=== PATIENT | female | born 1955 | race Caucasian/White ===

== ENCOUNTER 2021-03-23 07:12 | Day surgery (SDC) | payer OTHER, SELFPAY ==
[2021-03-17 16:44] VITALS: BMI 21.7
--- NOTE | 2021-03-18 14:45 | MHC.SHP ---
Pre-Procedural Eval Section A The patient is an INPATIENT: No The History & Physical has been completed within 30 days and I have reviewed it.: Yes Section B Chief Complaint: cataract Allergies: Allergies Allergy/AdvReac Type Severity Reaction Status Date / Time codeine [CODEINE] Allergy Severe HALLUCINATI Verified 03/17/21 16:47 ONS/AGITATI ON adhesive tape [ADHESIVE TAPE] Allergy Mild BLISTER Verified 03/17/21 16:47 (YRS AGO) Plan Diagnosis/Plan: Unchanged I have reviewed the history and physical and performed a pertinent physical examination on my patient. No changes have occurred unless specified.
--- NOTE | 2021-03-20 09:15 | P.CONAN_ITS ---
Documented by User: Gricel Davila 03/20/21 09:16 HPI - Anesthesia Eval Consult details Narrative: 66yo F for Right Cataract Extraction IOL Insertion PCP cleared No prev cataract on record [facility] Past Medical History Medical History COVID-19 vaccine series completed Elevated cholesterol GERD (gastroesophageal reflux disease) HTN (hypertension) Surgical History Surgical History History of History of cataract extraction Hx of colonoscopy Social History Social History Patient Tobacco Use Status: Never used Tobacco Are you DNR?: No Advance Directives: No Advance Directives Information Provided: No Advance Directives on File: No Meds Allergies Allergy/AdvReac Type Severity Reaction Status Date / Time codeine [CODEINE] Allergy Severe HALLUCINATI Verified 03/23/21 08:00 ONS/AGITATI ON adhesive tape [ADHESIVE TAPE] Allergy Mild BLISTER Verified 03/23/21 08:00 (YRS AGO) Home Medications Medication Instructions Recorded Confirmed Last Taken Type losartan 1 tab PO DAILY 03/17/21 03/17/21 Unknown History omeprazole 1 cap PO DAILY 03/17/21 03/17/21 03/23/21 05:45 History simvastatin 1 tab PO BEDTIME 03/17/21 03/17/21 Unknown History Exam Exam Date and Time: March 20, 2021 0915 Height,Weight and Vital Signs: Height 5 ft 6 in Weight 61.235 kg Assessment and Plan Assessment Anesthesia Assessment: Chart Reviewed Documented by User: Edi Vasquez 03/23/21 08:17 [facility] Past Medical History Medical History COVID-19 vaccine series completed Elevated cholesterol GERD (gastroesophageal reflux disease) HTN (hypertension) Surgical History Surgical History History of History of cataract extraction Hx of colonoscopy Social History Social History Patient Tobacco Use Status: Never used Tobacco Are you DNR?: No Advance Directives: No Advance Directives Information Provided: No Advance Directives on File: No Meds Allergies Allergy/AdvReac Type Severity Reaction Status Date / Time codeine [CODEINE] Allergy Severe HALLUCINATI Verified 03/23/21 08:00 ONS/AGITATI ON adhesive tape [ADHESIVE TAPE] Allergy Mild BLISTER Verified 03/23/21 08:00 (YRS AGO) Home Medications Medication Instructions Recorded Confirmed Last Taken Type losartan 1 tab PO DAILY 03/17/21 03/17/21 Unknown History omeprazole 1 cap PO DAILY 03/17/21 03/17/21 03/23/21 05:45 History simvastatin 1 tab PO BEDTIME 03/17/21 03/17/21 Unknown History Exam Airway Mallampati Class: II TM Dist: >3cm Loose/Missing/Broken Teeth: No (many crowns) Heart: rrr+[id number] Lungs: cta b/l Assessment and Plan Assessment Anesthesia Assessment: Anesthesia Plan Discussed, PAT Visit and Chart Reviewed Final Anesthetic Review NPO: Yes ASA Class: II Final Preanesthetic Review: No Changes in Pt Med Stat, Meds/Allgs Chart Reviewed, Consent Obtained/Reviewed and Anes Risks/Benef Reviewed Patient Risk: Low Procedure Risk: Low Assessment/Block/Sedation in SS: Assess/Block/Sedation-SS Anesthetic Plan Anesthetic Plan: MAC: and Agree w/ Assess. and Plan Disposition: Standard PACU
[2021-03-23 08:00] VITALS: BP 123/58; PULSE 71; RESP 16; TEMP 37.2; O2SAT 100
[2021-03-23] MEDS: Tetracaine HCl/PF 0.5% Oph Sol 4 ML DROPS 1 DROP EYE-RIGHT (08:14)
[2021-03-23] MEDS: Lactated Ringers 500 ML 50 ML IV (08:16)
[2021-03-23] MEDS: Tropicamide 1 % Ophth Sol 3 ML BTL 1 DROP EYE-RIGHT ×3 (08:17→08:26)
[2021-03-23] MEDS: Phenylephrine HCL 2.5% Oph SoL 2 ML BOTTLE 1 DROP EYE-RIGHT ×3 (08:19→08:28)
--- NOTE | 2021-03-23 09:02 | HO.PNOPHT ---
Ophthalmology Procedure Procedure Date of Service: 03/23/21 Ophthalmology Viscoelastic: Healon Duet Dual Pack Pro Ophthalmology Lenses: TECNIS [id number] (17.5) Procedure Notes: PREOPERATIVE DIAGNOSIS: Decreased visual acuity right eye secondary to cataract POSTOPERATIVE DIAGNOSIS: Same PROCEDURE: Right cataract extraction with a toric multifocal intraocular lens insertion axis 92 SURGEON: Logan Castillo M.D. ANESTHESIA: Topical/MAC ESTIMATED BLOOD LOSS: None COMPLICATIONS: None After obtaining informed consent, the patient was brought to the operating room suite and placed in the supine position. After adequate sedation per anesthesia, topical drops of Tetracaine were given to the right eye. The eye was then prepped and draped in the usual sterile fashion. The operating room microscope was then positioned over the operative eye and a lid speculum placed. A paracentesis was created. Viscoelastic was then instilled into the anterior chamber. A three plane incision was then created temporally, utilizing a 2.85 mm keratome. Capsulotomy forceps were then utilized to create a circular tear capsulotomy. Hydrodissection and hydrodelineation were carried out until adequate mobilization of the nucleus occurred. Phacoemulsification was then utilized to remove the dense central nucleus followed by removal of the cortical material utilizing the automated aspiration irrigation unit. Viscoelastic was instilled into the posterior capsular bag followed by placement of a multifocal posterior chamber intraocular lens without difficulty. The residual Viscoelastic was then removed utilizing the automated IA machine. The wound was checked and found to be watertight. The patient tolerated the procedure well and the lid speculum was removed. Intracameral injection of Vigamox 0.1 mL followed by a subtenon injection of Kenalog-40 0.2 mL were administered. The patient will be seen in the a.m.
[2021-03-23 09:25] VITALS: BP 122/59; PULSE 67; RESP 19; TEMP 36.2; O2SAT 99
== END 2021-03-23 10:21 | disposition home or self-care (01) ==
PROVIDERS: Visit Provider Ophthalmology
PROC: (CPT 66985; principal; 2021-03-23 09:40)
DX: H25.11 Age-related nuclear cataract, right eye (principal); Z88.5 Allergy status to narcotic agent
CPT/HCPCS: 66984; J2250; J3010; J3300; V2788

== ENCOUNTER 2022-08-09 10:44 | Outpatient (REF) | payer MEDICARE, SELFPAY ==
[2022-08-09 14:04] LABS: Hematocrit 39.2 % (37.0-47.0); Hemoglobin 12.6 g/dl (12.0-16.0); Mean Corpuscular HGB Conc 32.1 g/dl (31.0-35.0); Mean Corpuscular Hemoglobin 28.9 pg (27.0-33.0); Mean Corpuscular Volume 89.9 fL (80.0-98.0); Mean Platelet Volume 12.3 fL (9.4-12.3); Platelet Count 179 X10*3/uL (160-400); Red Blood Count 4.36 X10*6/uL (4.20-5.50); Red Cell Distribution Width 14.2 % (11.0-16.0); White Blood Count 4.3 X10*3/uL (4.8-10.8)
[2022-08-09 14:19] LABS: Appearance Urine Hazy; Color Urine Yellow; Glucose Urine UA Negative (Negative); Leukocyte Esterase Urine Large (3+) (Negative); Nitrite Urine Negative (Negative); PH 7.5 (5.0-9.0); Specific Gravity - Urine 1.015 (1.005-1.025); UMIC TRIGGER UA YES; Urine Blood Negative (Negative); Urine Ketones Negative (Negative); Urine Protein Negative (Neg-Trace)
[2022-08-09 14:40] LABS: Alanine Aminotransferase 12 U/L (0-31); Albumin Level 4.1 g/dL (3.5-5.0); Alkaline Phosphatase 63 U/L (39-117); Anion Gap 14 (12-20); Aspartate Amino Transferase 18 U/L (5-31); Bilirubin Total 0.4 mg/dL (0.0-1.0); Blood Urea Nitrogen 9 mg/dL (9-16); Calcium 9.2 mg/dL (8.4-10.2); Carbon Dioxide 27 mmol/L (22-29); Chloride 105 mmol/L (96-108); Cholesterol 193 mg/dL; Estimated Glomerular Filt Rate > 60; Glucose Fasting 92 mg/dL (60-99); HDL Cholesterol 88 mg/dL; LDL Cholesterol Calculated 93 mg/dl; Potassium 4.7 mmol/L (3.3-5.1); Sodium 141 mmol/L (135-145); Total Protein 6.7 g/dL (6.5-8.0); Triglycerides 60 mg/dL
[2022-08-09 14:43] LABS: TSH reflex Free T4 2.09 uIU/mL (0.32-4.0); Vitamin D 25-OH Total 47.6 ng/mL (>30)
[2022-08-09 14:44] LABS: RBC Urine 0-2 /HPF (0-2); Renal Epithelial Cells Urine Present; WBC Urine 0-5 /HPF (0-5)
[2022-08-09 14:45] LABS: Bacteria Urine 3+ (None Seen); Hyaline Casts Urine 0-2 /LPF (0-2)
[2022-08-09 14:58] LABS: Creatinine Urine 109.27 mg/dL; Microalbum/Creatinine Ratio Ur 22.8 ug/mg cr
== END 2022-08-09 10:45 | disposition home or self-care (01) ==
LOC: HO.HMGCLDS 10:44
PROVIDERS: PCP Internal Medicine; Visit Provider Internal Medicine
DX: K21.9 Gastro-esophageal reflux disease without esophagitis (principal); M81.0 Age-related osteoporosis without current pathological fracture; R80.9 Proteinuria, unspecified; E78.00 Pure hypercholesterolemia, unspecified
CPT/HCPCS: 36415; 80053; 80061; 81001; 82043; 82306; 84443; 85027

== ENCOUNTER 2022-08-17 09:25 | Outpatient (REF) | payer MEDICARE, SELFPAY ==
[2022-08-17 12:15] LABS: Appearance Urine Clear; Color Urine Yellow; Glucose Urine UA Negative (Negative); Leukocyte Esterase Urine Trace (Negative); Nitrite Urine Negative (Negative); UMIC TRIGGER UA YES; Urine Blood Negative (Negative); Urine Ketones Negative (Negative); Urine Protein Negative (Neg-Trace)
[2022-08-17 12:26] LABS: Bacteria Urine None Seen (None Seen); RBC Urine 0-2 /HPF (0-2); Squamous Epithelial Cell Urine 0-2 /HPF (0-2); WBC Urine 0-5 /HPF (0-5)
== END 2022-08-17 09:26 | disposition home or self-care (01) ==
LOC: HO.HMGCLDS 09:25
PROVIDERS: PCP Internal Medicine; Visit Provider Internal Medicine
DX: R82.71 Bacteriuria (principal)
CPT/HCPCS: 81001; 87086; 87147

== ENCOUNTER 2023-10-31 12:48 | Outpatient (AMB) | payer MEDICARE, SELFPAY ==
--- NOTE | 2023-10-31 12:58 | A.OFFPC_ITS ---
Vital Signs 10/31/23 12:59 Height 5 ft 5.5 in Weight 147 lb BMI 24.1 BP 106/74 Blood Pressure Location Lt brachial Position Sitting Pulse 79 Pulse Source Pulse Oximeter Pulse Oximetry (%) 97 Oxygen Delivery Method Room Air Intake Visit Reasons: Annual PE, Discuss/Bill ACP Intake Note: Pt is here today for PE. Allergies codeine [CODEINE] Allergy (Severe, Verified 10/31/23 12:58) HALLUCINATIONS/AGITATION adhesive tape [ADHESIVE TAPE] Allergy (Mild, Verified 10/31/23 12:58) BLISTER (YRS AGO) Medication List - Last Reconciled 10/31/23 by Pili Petit MD losartan 25 mg PO DAILY omeprazole 20 mg PO DAILY raloxifene 60 mg PO DAILY simvastatin 40 mg PO BEDTIME Tobacco use date assessed: 10/31/23 Fall risk assessment: No Falls in past year Last assessed Fall Risk: 10/31/23 Dental Screening Dental Screen Date: 10/31/23 Did you have a dental visit in the last 12 months?: Yes Did you have a dental problem in the last 6 months where you did not have access to dental care?: No Was dental information given to patient?: Patient has dentist HPI Annual PE, Discuss/Bill ACP HPI Details Pt presents for PE. [facility] Medical History COVID-19 vaccine series completed GERD (gastroesophageal reflux disease) Elevated cholesterol Surgical History Hx of colonoscopy History of History of cataract extraction Social History Household Members Other:: , 2 adult children, in [facility] and [place], Housing: House Patient Tobacco Use Status: Never used Tobacco e-Cigarette/Vaping Use: Never Used Current occupational status: retired Cognitive needs: No Hearing needs: No Vision needs: No Questionnaire Thrive Questionnaire Date Thrive assessed: 08/19/22 AUDIT C Alcohol Use Questionnaire (AUDIT-C) 1. How often do you have a drink containing alcohol?: 2-3 times a week 2. How many drinks containing alcohol do you have on a typical day when you are drinking?: 1 or 2 3. How often do you have six or more drinks on one occasion?: Never Total Score: 3 NILDA-7 AMB Questionnaire NILDA-7 Date NILDA - 7 assessed: 08/19/22 Feeling nervous, anxious, or on edge: 1 = Several days Not being able to stop or control worryin = Several days Worrying too much about different things: 1 = Several days Trouble relaxin = Several days Being so restless that it is hard to sit still: 0 = Not at all Becoming easily annoyed or irritable: 0 = Not at all Feeling afraid as if something awful might happen: 0 = Not at all Total NILDA-7 score (0-4 normal; 5-9 mild; 10-14 moderate; 15-21 severe): 4 Source: Developed by Drs. Damien Barr, Sarah Johnson, Justen Barrera and colleagues, with an educational [email or web address] from [employer]. Review of Systems Const All systems reviewed & are unremarkable except as noted in HPI and below Reports no additional complaints Eyes Reports no additional complaints ENT Reports no additional complaints Card Reports no additional complaints Resp Reports no additional complaints GI Reports no additional complaints Reports no additional complaints Musc Reports no additional complaints Physical exam (Primary Care) Vital Signs: Last Vital Signs Pulse 79 10/31/23 12:59 BP 106/74 10/31/23 12:59 Pulse Ox 97 10/31/23 12:59 Oxygen Delivery Method Room Air 10/31/23 12:59 BMI result Body Mass Index 24.1 Tobacco/Smoking Status: Tobacco use Status Tobacco use date assessed 10/31/23 10/31/23 13:09 Patient Tobacco Use Status Never used Tobacco 10/31/23 13:09 e-Cigarette/Vaping Use Never Used 10/31/23 12:58 Thrive Assessment: Date of Thrive Assessment Date Thrive assessed 08/19/22 10/31/23 12:58 Const General: no acute distress HENMT Head: Yes normal to inspection Ears: hearing grossly normal bilaterally General nose exam: Normal external nose present Face and sinus: Yes normal facial exam Throat: Yes posterior oropharynx normal Eyes General: appearance normal, both eyes and all related structures Neck Neck: Yes no lymphadenopathy and Yes supple Resp Effort & Inspection: normal respiratory effort Auscultation: clear to auscultation bilaterally Cardio Rhythm: regular rhythm Heart sounds: S1 normal heart sound present and S2 normal heart sound present GI Inspection: Yes normal to inspection Palpation (GI): Soft to palpation Percussion: Yes normal to percussion Auscultation: normal bowel sounds Assessment and Plan Assessment & Plan (1) Elevated cholesterol: Code(s): E78.00 - Pure hypercholesterolemia, unspecified Plan: Continue statin (2) Proteinuria: Comment: on ARB Code(s): R80.9 - Proteinuria, unspecified Plan: Continue ARB, check UA, (3) Annual physical exam: Code(s): Z00.00 - Encounter for general adult medical examination without abnormal findings Plan: Well-balanced diet regular physical activity discussed with the patient. Orders: Orders Vitamin D 25-OH Total Today E78.00 - Pure hypercholesterolemia, unspecified, R80.9 - Proteinuria, unspecified, Z00.00 - Encounter for general adult medical examination without abnormal findings UA w Microscopic Today E78.00 - Pure hypercholesterolemia, unspecified, R80.9 - Proteinuria, unspecified, Z00.00 - Encounter for general adult medical examination without abnormal findings Total Protein Urine Random Today R80.9 - Proteinuria, unspecified Comprehensive [place]. Panel Fast Today E78.00 - Pure hypercholesterolemia, unspecified, R80.9 - Proteinuria, unspecified, Z00.00 - Encounter for general adult medical examination without abnormal findings Complete Blood Count Auto Diff Today E78.00 - Pure hypercholesterolemia, unspecified, R80.9 - Proteinuria, unspecified, Z00.00 - Encounter for general adult medical examination without abnormal findings Lipid Panel Today E78.00 - Pure hypercholesterolemia, unspecified, R80.9 - Proteinuria, unspecified, Z00.00 - Encounter for general adult medical examination without abnormal findings Medications: Refilled omeprazole 20 mg PO DAILY 90 caps 3RF simvastatin 40 mg PO BEDTIME 90 tabs 3RF losartan 25 mg PO DAILY 90 tabs 3RF Coding Level of Care Code Est Pt Prev Care >65y(44815) Diagnoses Elevated cholesterol E78.00 Proteinuria R80.9 Annual physical exam Z00.00
[2023-10-31 12:59] VITALS: BP 106/74; PULSE 79; O2SAT 97; BMI 24.1
== END 2023-10-31 13:49 | disposition home or self-care (01) ==
PROVIDERS: PCP Internal Medicine; Visit Provider Internal Medicine
DX: E78.00 Pure hypercholesterolemia, unspecified (principal); R80.9 Proteinuria, unspecified; Z00.00 Encounter for general adult medical examination without abnormal findings
CPT/HCPCS: 99397

== ENCOUNTER 2023-10-31 13:51 | Outpatient (REF) | payer MEDICARE, SELFPAY ==
[2023-10-31 16:12] LABS: MANUAL DIFF FLAG NO
[2023-10-31 16:22] LABS: Basophils Percent Auto 0.3 % (0-2); Eosinophils Absolute Auto 0.1 X10*3/uL (0.0-0.4); Eosinophils Percent Auto 3.1 % (0-4); Hematocrit 41.2 % (37.0-47.0); Hemoglobin 13.7 g/dl (12.0-16.0); Lymphocytes Percent Auto 34.1 % (20-40); Mean Corpuscular HGB Conc 33.3 g/dl (31.0-35.0); Mean Corpuscular Hemoglobin 28.9 pg (27.0-33.0); Mean Corpuscular Volume 86.9 fL (80.0-98.0); Mean Platelet Volume 12.3 fL (9.4-12.3); Monocytes Absolute Auto 0.3 X10*3/uL (0.1-1.2); Neutrophils Absolute Auto 1.5 x10*3/uL (2.0-8.3); Neutrophils Percent Auto 52.5 % (45-73); Platelet Count 138 X10*3/uL (160-400); Red Blood Count 4.74 X10*6/uL (4.20-5.50); Red Cell Distribution Width 14.1 % (11.0-16.0); White Blood Count 2.9 X10*3/uL (4.8-10.8)
[2023-10-31 16:25] LABS: Appearance Urine Clear; Color Urine Yellow; Glucose Urine UA Negative (Negative); Leukocyte Esterase Urine Small (1+) (Negative); Nitrite Urine Negative (Negative); Specific Gravity - Urine <= 1.005 (1.005-1.025); UMIC TRIGGER UA YES; Urine Blood Negative (Negative); Urine Ketones Negative (Negative); Urine Protein Negative (Neg-Trace)
[2023-10-31 16:43] LABS: Alanine Aminotransferase 13 U/L (0-31); Albumin Level 4.2 g/dL (3.5-5.0); Alkaline Phosphatase 44 U/L (39-117); Anion Gap 13 (12-20); Aspartate Amino Transferase 20 U/L (5-31); Bilirubin Total 0.4 mg/dL (0.0-1.0); Blood Urea Nitrogen 6 mg/dL (9-16); Carbon Dioxide 27 mmol/L (22-29); Chloride 102 mmol/L (96-108); Cholesterol 174 mg/dL (<200); Estimated Glomerular Filt Rate > 60; Glucose Fasting 94 mg/dL (60-99); HDL Cholesterol 66 mg/dL (>40); LDL Cholesterol Calculated 92 mg/dL (<100); Potassium 3.8 mmol/L (3.3-5.1); Sodium 138 mmol/L (135-145); Total Protein 7.5 g/dL (6.5-8.0); Triglycerides 82 mg/dL (<150)
[2023-10-31 17:01] LABS: Vitamin D 25-OH Total 63.3 ng/mL (>30)
[2023-10-31 17:50] LABS: Bacteria Urine None Seen (None Seen); Hyaline Casts Urine 0-2 /LPF (0-2); RBC Urine 0-2 /HPF (0-2); WBC Urine 0-5 /HPF (0-5)
== END 2023-10-31 13:52 | disposition home or self-care (01) ==
LOC: HO.HMGCLDS 13:51
PROVIDERS: PCP Internal Medicine; Visit Provider Internal Medicine
DX: Z00.00 Encounter for general adult medical examination without abnormal findings (principal); E78.00 Pure hypercholesterolemia, unspecified; R80.9 Proteinuria, unspecified
CPT/HCPCS: 36415; 80053; 80061; 81001; 82306; 85025

== ENCOUNTER 2023-11-11 14:11 | Outpatient (REF) | payer MEDICARE, SELFPAY ==
[2023-11-11 16:27] LABS: Baso%MD 0.6 %; Eos%MD 4.4 %; Hematocrit 37.8 % (37.0-47.0); Hemoglobin 12.5 g/dl (12.0-16.0); IG%MD 0.4 %; Lymph%MD 28.2 %; Mean Corpuscular HGB Conc 33.1 g/dl (31.0-35.0); Mean Corpuscular Hemoglobin 29.1 pg (27.0-33.0); Mean Corpuscular Volume 88.1 fL (80.0-98.0); Mean Platelet Volume 12.3 fL (9.4-12.3); Mono%MD 8.9 %; Neut%MD 57.5 %; Platelet Count 220 X10*3/uL (160-400); Red Blood Count 4.29 X10*6/uL (4.20-5.50); Red Cell Distribution Width 14.2 % (11.0-16.0)
[2023-11-11 17:11] LABS: Folate 5.5 ng/mL (> or = 4.0); Vitamin B12 254 pg/mL (200-900)
[2023-11-11 17:52] LABS: Band Neutrophils Percent 2 % (3-5); Eosinophils Absolute Manual 0.2 X10*3/uL (0.0-0.4); Eosinophils Percent Manual 3 % (0-4); Lymphocytes Absolute Manual 1.4 X10*3/uL (1.2-4.9); Lymphocytes Percent Manual 27 % (20-40); Monocytes Absolute Manual 0.6 X10*3/uL (0.1-1.2); Monocytes Percent Manual 12 % (2-11); Neutrophils Absolute Manual 2.9 X10*3/uL (2.0-8.3); Neutrophils Percent Manual 56 % (45-73)
[2023-11-11 17:53] LABS: Large Platelet PRESENT; Platelet Estimate NORMAL (NORMAL); Platelet Morphology Comment NOTED; RBC Morphology NORMAL; Spherocytes 1+ (0-2) /OIF
[2023-11-14 13:09] LABS: Prot Elec - Albumin 4.1 g/dL (3.8-4.8); Prot Elec - Alpha1 0.4 g/dL (0.2-0.3); Prot Elec - Alpha2 0.8 g/dL (0.5-0.9); Prot Elec - Beta 1 0.4 g/dL (0.4-0.6); Prot Elec - Beta 2 0.4 g/dL (0.2-0.5); Prot Elec - Gamma 1.1 g/dL (0.8-1.7); Prot Elec - Total Protein 7.1 g/dL (6.1-8.1)
[2023-11-16 08:28] LABS: IgA 195 mg/dL (70-320); IgG 1196 mg/dL (600-1540); IgM 65 mg/dL (50-300)
== END 2023-11-11 14:12 | disposition home or self-care (01) ==
LOC: HO.HMGCLDS 14:11
PROVIDERS: PCP Internal Medicine; Visit Provider Internal Medicine
DX: D70.9 Neutropenia, unspecified (principal)
CPT/HCPCS: 36415; 82607; 82746; 82784; 84165; 85007; 85027; 86334

== ENCOUNTER → 2024-11-16 11:22 | Outpatient (AMB) | payer MEDICARE, SELFPAY | END | disposition home or self-care (01) | PROVIDERS: PCP Internal Medicine; Visit Provider Internal Medicine ==

== ENCOUNTER → 2024-11-16 11:22 | Outpatient (BNVA) | payer MEDICARE, SELFPAY | PROVIDERS: PCP Internal Medicine; Visit Provider Internal Medicine | DX: Z00.00 Encounter for general adult medical examination without abnormal findings (principal); Z23 Encounter for immunization; M81.0 Age-related osteoporosis without current pathological fracture; D70.9 Neutropenia, unspecified; I73.9 Peripheral vascular disease, unspecified; E78.00 Pure hypercholesterolemia, unspecified; E55.9 Vitamin D deficiency, unspecified; R80.9 Proteinuria, unspecified | CPT/HCPCS: 90471; 90677; 96127; 99397 ==

== ENCOUNTER 2024-11-20 10:05 | Outpatient (REF) | payer MEDICARE, SELFPAY ==
[2024-11-20 13:04] LABS: Appearance Urine Turbid; Color Urine Yellow; Glucose Urine UA Negative (Negative); Leukocyte Esterase Urine Moderate (2+) (Negative); Nitrite Urine Negative (Negative); PH 5.5 (5.0-9.0); Specific Gravity - Urine 1.025 (1.005-1.025); UMIC TRIGGER UA YES; Urine Blood Negative (Negative); Urine Ketones Trace mg/dL (Negative); Urine Protein Trace mg/dL (Neg-Trace)
[2024-11-20 13:13] LABS: MANUAL DIFF FLAG NO
[2024-11-20 13:16] LABS: Bacteria Urine 1+ (None Seen); Calcium Oxalate Crystals Urine Present; Renal Epithelial Cells Urine Present; Transitional Epi Cells Urine Present
[2024-11-20 13:17] LABS: RBC Urine 0-2 /HPF (0-2)
[2024-11-20 13:22] LABS: Basophils Percent Auto 0.9 % (0-2); Eosinophils Absolute Auto 0.2 X10*3/uL (0.0-0.4); Eosinophils Percent Auto 5.5 % (0-4); Hematocrit 37.2 % (37.0-47.0); Hemoglobin 12.2 g/dl (12.0-16.0); Imm Gran Abs Auto 0.01 X10*3/uL (0.00-0.03); Imm Gran Pct Auto 0.2 % (0.0-0.4); Lymphocytes Absolute Auto 1.2 X10*3/uL (1.2-4.9); Lymphocytes Percent Auto 26.7 % (20-40); Mean Corpuscular HGB Conc 32.8 g/dl (31.0-35.0); Mean Corpuscular Hemoglobin 29.3 pg (27.0-33.0); Mean Corpuscular Volume 89.4 fL (80.0-98.0); Mean Platelet Volume 12.7 fL (9.4-12.3); Monocytes Absolute Auto 0.4 X10*3/uL (0.1-1.2); Monocytes Percent Auto 9.8 % (2-11); Neutrophils Absolute Auto 2.5 x10*3/uL (2.0-8.3); Neutrophils Percent Auto 56.9 % (45-73); Platelet Count 156 X10*3/uL (160-400); Red Blood Count 4.16 X10*6/uL (4.20-5.50); Red Cell Distribution Width 14.5 % (11.0-16.0); White Blood Count 4.4 X10*3/uL (4.8-10.8)
[2024-11-20 15:39] LABS: Alanine Aminotransferase 11 U/L (0-31); Albumin Level 3.9 g/dL (3.5-5.0); Anion Gap 12 (12-20); Aspartate Amino Transferase 23 U/L (5-31); Bilirubin Total 0.5 mg/dL (0.0-1.0); Blood Urea Nitrogen 12 mg/dL (9-16); Calcium 8.9 mg/dL (8.4-10.2); Carbon Dioxide 26 mmol/L (22-29); Chloride 106 mmol/L (96-108); Cholesterol 182 mg/dL (<200); Estimated Glomerular Filt Rate > 60; Glucose Fasting 86 mg/dL (60-99); HDL Cholesterol 82 mg/dL (>40); LDL Cholesterol Calculated 88 mg/dL (<100); Potassium 4.2 mmol/L (3.3-5.1); Sodium 140 mmol/L (135-145); Total Protein 7.2 g/dL (6.5-8.0); Triglycerides 62 mg/dL (<150)
[2024-11-20 15:51] LABS: TSH reflex Free T4 2.69 uIU/mL (0.32-4.0); Vitamin D 25-OH Total 80.4 ng/mL (>30)
[2024-11-20 17:11] LABS: Alkaline Phosphatase 50 U/L (39-117)
== END 2024-11-20 10:06 | disposition home or self-care (01) ==
LOC: HO.HMGCLDS 10:05
PROVIDERS: PCP Internal Medicine; Visit Provider Internal Medicine
DX: Z00.00 Encounter for general adult medical examination without abnormal findings (principal); E55.9 Vitamin D deficiency, unspecified; I73.9 Peripheral vascular disease, unspecified
CPT/HCPCS: 36415; 80053; 80061; 81001; 82306; 84443; 85025

== ENCOUNTER 2024-12-04 15:01 | Outpatient (REF) | payer MEDICARE, SELFPAY | END 2024-12-04 15:02 | disposition home or self-care (01) | LOC: HO.US 15:01 | PROVIDERS: PCP Internal Medicine; Visit Provider Internal Medicine | DX: R82.71 Bacteriuria (principal); I73.9 Peripheral vascular disease, unspecified | CPT/HCPCS: 87086; 87147; 93925 ==

== ENCOUNTER → 2024-12-04 15:03 | Outpatient (BNV) | payer MEDICARE, SELFPAY | PROVIDERS: PCP Internal Medicine; Visit Provider Radiology Diagnostic Radiology | DX: I73.9 Peripheral vascular disease, unspecified (principal) | CPT/HCPCS: 93925 ==

== ENCOUNTER 2025-01-03 10:16 | Outpatient (AMB) | payer MEDICARE, SELFPAY ==
--- NOTE | 2025-01-03 10:30 | MHC.OFFVIS ---
Intake Visit Reasons: [employer]IST/[facility] referral for PVD s/p Arterial US 12/04/24 Intake Note: New patient presents for PVD. Patient states her ankle are weak . States she gets ankle swelling on and off. Cramping once in a while Accompanied by: Self / Same As Patient Allergies codeine [CODEINE] Allergy (Severe, Verified 01/03/25 10:32) HALLUCINATIONS/AGITATION adhesive tape [ADHESIVE TAPE] Allergy (Mild, Verified 01/03/25 10:32) BLISTER (YRS AGO) HPI HPI [employer]ION SPECIALIST/[facility] referral for PVD s/p Arterial US 12/04/24: Details: The patient is a 69-year-old female presenting with a referral for assessing peripheral vascular disease. Approximately a year and a half ago, noninvasive arterial testing during an insurance-related home visit suggested possible vascular blockage. Subsequent consultation with Dr. Bruce Mesa involved an ultrasound, though its results were not detailed here. The patient can walk one to one and a half miles on flat surfaces without issues, indicating decent exercise tolerance. She denies smoking or diabetes and reports familial cardiovascular issues, particularly from her mother. Current medications include treatments for hypercholesterolemia and a history of proteinuria managed with losartan. An incident in April 2022 involving a fall caused fractures that have since healed without further complication. The patient notes occasional ankle swelling and the presence of spider veins, though there is no prominent history of intervention for vascular disease to date. [facility] Medical History Pelvic fracture COVID-19 vaccine series completed GERD (gastroesophageal reflux disease) Elevated cholesterol Surgical History Hx of colonoscopy History of History of cataract extraction Family History Father No problems noted. Mother Hypertension Diabetes Afib Social History Household Members Other:: , 2 adult children, in [facility] and [place], Housing: House Patient Tobacco Use Status: Never used Tobacco e-Cigarette/Vaping Use: Never Used service: No Current occupational status: retired Cognitive needs: No Hearing needs: No Vision needs: No Review of Systems Const All systems reviewed & are unremarkable except as noted in HPI and below Reports no additional complaints ENT Reports Normal hearing present Card Denies chest pain, Denies chest pain at rest, Denies chest pain with activity and Denies pedal edema Resp Denies cough GI Denies abdominal pain Musc Denies abnormal gait, Denies muscle cramps and Denies radiating pain into limb Skin/Breast Denies skin ulcer and Denies wounds Neuro Reports Normal hearing present and Denies abnormal gait Psych Reports no additional complaints Physical Exam Const General: cooperative, healthy appearing and comfortable Orientation/consciousness: oriented to person, oriented to place and oriented to time HEENT Head: Yes normal to inspection Neck Neck: Yes normal visual inspection Carotids: no bruits Chest Chest palpation & inspection: normal inspection of the chest Resp Effort & Inspection: normal respiratory effort and able to speak in complete sentences Auscultation: clear to auscultation bilaterally, no crackles, no rales, no rhonchi and no wheezes Cardio Other: Palpable bilateral DP pulses Rate: regular rate Rhythm: regular rhythm Heart sounds: S1 normal heart sound present and S2 normal heart sound present Bruits: no carotid bruits Peripheral pulses: Peripheral pulses 2+ throughout GI Inspection: Yes normal to inspection Skin Wounds: no wounds Hair: normal Neuro General: oriented to person, oriented to place and oriented to time Cranial nerves: Yes CN's II-XII intact bilaterally and Yes Normal hearing present Cognition (Neuro): normal cognition Motor exam (neuro): 5/5 motor strength present throughout Extrem Other: venous exam: No significant superficial varicosities or spider telangiectasias, minimal edema General: No clubbing, No cyanosis and No edema Psych Appearance: grossly normal Mental Status: mental status grossly normal Speech and movement: Normal speech and movement present Results Reviewed Results Reviewed: Noninvasive arterial testing dated 12/04/2024 demonstrates basically multi phasic waveforms all the way down. I do believe that the mild disease below-knee knee was an over read. Assessment & Plan Assessment & Plan (1) PVD (peripheral vascular disease): Code(s): I73.9 - Peripheral vascular disease, unspecified Category: Medical Plan: During our discussion, I reviewed the patient's testing history, emphasizing that current examination shows good blood flow with palpable pulses in her legs. I clarified that some past insurance-based readings might have been misinterpreted, given her good overall health status and activity level. I conveyed the importance of continued use of cholesterol and blood pressure medications and affirmed no need for further vascular interventions or testing now, considering the absence of substantial peripheral vascular disease symptoms or evidence. We discussed the benefits of maintaining her current walking routine to enhance circulation, and I addressed her inquiries related to potential lower extremity swelling being mild. She will follow up with us on an as-needed basis. Thank you for allowing us to assist in her care. Coding Level of Care Code New Pt Level 4 (32757) Diagnoses PVD (peripheral vascular disease) I73.9
== END 2025-01-03 11:06 | disposition home or self-care (01) ==
LOC: HO.HVS 10:17
PROVIDERS: PCP Internal Medicine; Visit Provider Surgery Vascular Surgery
DX: I73.9 Peripheral vascular disease, unspecified (principal)
CPT/HCPCS: 99204

== ENCOUNTER → 2025-01-03 10:16 | Outpatient (BNVA) | payer MEDICARE, SELFPAY | PROVIDERS: PCP Internal Medicine; Visit Provider Surgery Vascular Surgery | DX: I73.9 Peripheral vascular disease, unspecified (principal) | CPT/HCPCS: 99202 ==

== ENCOUNTER 2025-02-18 07:28 | Outpatient (REF) | payer MEDICARE, SELFPAY ==
[2025-02-18 07:45] VITALS: BP 124/76; PULSE 78; RESP 16; TEMP 36.7; O2SAT 98; BMI 25.0
== END 2025-02-18 07:29 | disposition home or self-care (01) ==
LOC: HO.MS 07:28
PROVIDERS: PCP Internal Medicine; Visit Provider Ophthalmology
PROC: (CPT 66821; principal; 2025-02-18 09:00)
DX: H26.492 Other secondary cataract, left eye (principal)
CPT/HCPCS: 66821